=== PATIENT | female | born 1960 | race Caucasian/White ===

== ENCOUNTER 2018-08-24 22:09 | Emergency (ER) | payer OTHER ==
[2018-08-24 23:18] LABS: ADD UMIC YES; UR ASCORBIC ACID NEGATIVE (NEGATIVE); UR BILIRUBIN (Dip) NEGATIVE (NEGATIVE); UR BLOOD (Dip) 2+ mg/dL (NEGATIVE); UR CLARITY CLOUDY (CLEAR); UR COLOR YELLOW (YELLOW); UR GLUCOSE (Dip) 2+ mg/dL (NEGATIVE); UR KETONES (Dip) NEGATIVE (NEGATIVE); UR LEUKOCYTE ESTERASE (Dip) 1+ Leu/ul (NEGATIVE); UR MUCUS FEW /HPF (NONE SEEN); UR NITRITE (Dip) NEGATIVE (NEGATIVE); UR NONSQUAMOUS EPITHELIAL CELL 2 /HPF (NONE SEEN); UR RBC 28 /HPF (0-5); UR SPECIFIC GRAVITY (Dip) 1.017 (1.003-1.030); UR SQUAMOUS EPITHELIAL CELL FEW /HPF (FEW); UR TOTAL PROTEIN (Dip) 2+ mg/dl (NEGATIVE); UR UROBILINOGEN (Dip) NEGATIVE (NEGATIVE); UR WBC 69 /HPF (0-5)
[2018-08-25 00:04] LABS: ABNORMAL IP MESSAGE 1; HEMATOCRIT 36.8 % (37.0-47.0); HEMOGLOBIN 12.1 g/dl (12.0-16.0); MEAN CORPUSCULAR HEMOGLOBIN 27.4 pg (29.0-33.0); MEAN CORPUSCULAR HGB CONC 32.9 g/dl (32.0-37.0); MEAN CORPUSCULAR VOLUME 83.4 fl (82.0-101.0); MEAN PLATELET VOLUME 10.1 fl (7.4-10.4); PLATELET COUNT 177 10^3/UL (140-415); RED BLOOD COUNT 4.41 10^6/ul (4.20-5.40)
[2018-08-25 00:04] LABS: WHITE BLOOD COUNT 1.9 10^3/ul (4.8-10.8)
[2018-08-25 00:11] LABS: ADD MAN DIFF? YES; POSITIVE DIFF @See below
[2018-08-25 00:28] LABS: ALANINE AMINOTRANSFERASE 106 IU/L (13-69); ALBUMIN 3.7 g/dl (3.3-4.9); ALBUMIN/GLOBULIN RATIO 1.08; ALKALINE PHOSPHATASE 95 IU/L (42-121); ANION GAP 13 (5-13); ASPARTATE AMINO TRANSFERASE 122 IU/L (15-46); BILIRUBIN,INDIRECT 0.5 mg/dl (0-1.1); BILIRUBIN,TOTAL 0.5 mg/dl (0.2-1.3); BLOOD UREA NITROGEN 16 mg/dl (7-20); CALCIUM 8.2 mg/dl (8.4-10.2); CARBON DIOXIDE 26 mmol/L (21-31); CHLORIDE 98 mmol/L (97-110); CREATININE 0.83 mg/dl (0.44-1.00); Estimated GFR > 60 mL/min (>60); GLUCOSE 175 mg/dl (70-220); LIPASE 68 U/L (23-300); POTASSIUM 3.8 mmol/L (3.5-5.1); SODIUM 137 mmol/L (135-144); TOTAL PROTEIN 7.1 g/dl (6.1-8.1)
[2018-08-25] MEDS ORDERED: CEFTRIAXONE 1 GM/50 ML (PMX) 50 ML IVPB (02:21)
[2018-08-25] MEDS: METHYLPREDNISOLONE 125 MG INJ IV (02:49)
[2018-08-25] MEDS: metroNIDAZOLE 500 MG/NS (PMX) 100 ML IVPB (02:49)
[2018-08-25] MEDS: LEVOFLOXACIN 500MG/D5W (PMX) 100 ML IVPB (02:49)
[2018-08-25] MEDS: SOD CHLORIDE 0.9% 1,000 ML IV (02:49)
[2018-08-25] MEDS: LIDOCAINE/MYLANTA 40 ML BTL PO (02:54)
[2018-08-25] MEDS: FAMOTIDINE 20 MG INJ IV (02:54)
[2018-08-25] MEDS: ONDANSETRON 4 MG INJ IV (02:54)
[2018-08-25] MEDS: BELLADONNA/PHENOBARBITAL TAB PO (02:55)
[2018-08-25] MEDS: DIPHENHYDRAMINE 50 MG INJ IV (02:55)
== END 2018-08-25 05:20 | disposition home or self-care (01) ==
LOC: E/R 08-25 05:20
DX: N30.01 Acute cystitis with hematuria (principal); I10 Essential (primary) hypertension; E11.9 Type 2 diabetes mellitus without complications; D72.819 Decreased white blood cell count, unspecified; R21 Rash and other nonspecific skin eruption; R74.0 Nonspecific elevation of levels of transaminase and lactic acid dehydrogenase [LDH]; Z79.4 Long term (current) use of insulin
CPT/HCPCS: 80053; 81001; 83690; 85025; 96374; 96375; 96376; 99284-25

== ENCOUNTER 2018-10-21 19:51 | Inpatient (IN) | payer OTHER ==
[2018-10-21] MEDS: CEFEPIME 2GM/50 ML (PMX) 50 ML IVPB ×2 (20:41→21:01)
[2018-10-21] MEDS: SODIUM CHLORIDE 0.9% 1L BAG IV* (20:42)
[2018-10-21] MEDS: ACETAMINOPHEN 325 MG TAB PO (20:42)
[2018-10-21 20:55] LABS: WHITE BLOOD COUNT 3.2 10^3/ul (4.8-10.8)
[2018-10-21 20:55] LABS: HEMATOCRIT 31.6 % (37.0-47.0); HEMOGLOBIN 10.7 g/dl (12.0-16.0); MEAN CORPUSCULAR HEMOGLOBIN 28.5 pg (29.0-33.0); MEAN CORPUSCULAR HGB CONC 33.9 g/dl (32.0-37.0); MEAN PLATELET VOLUME 12.2 fl (7.4-10.4); PLATELET COUNT 125 10^3/UL (140-415); RED BLOOD COUNT 3.76 10^6/ul (4.20-5.40); RED CELL DISTRIBUTION WIDTH 15.1 % (11.5-14.5)
[2018-10-21 20:56] LABS: ADD MAN DIFF? YES; POSITIVE DIFF @See below
[2018-10-21 21:12] LABS: INR 1.12; PROTIME 14.5 Sec (11.9-14.9); PT RATIO 1.1
[2018-10-21 21:16] LABS: ALANINE AMINOTRANSFERASE 55 IU/L (13-69); ALBUMIN 3.6 g/dl (3.3-4.9); ALBUMIN/GLOBULIN RATIO 1.05; ALKALINE PHOSPHATASE 95 IU/L (42-121); ANION GAP 11 (5-13); ASPARTATE AMINO TRANSFERASE 109 IU/L (15-46); BILIRUBIN,INDIRECT 0.4 mg/dl (0-1.1); BILIRUBIN,TOTAL 0.4 mg/dl (0.2-1.3); BLOOD UREA NITROGEN 25 mg/dl (7-20); CALCIUM 8.9 mg/dl (8.4-10.2); CARBON DIOXIDE 24 mmol/L (21-31); CHLORIDE 102 mmol/L (97-110); CREATININE 0.93 mg/dl (0.44-1.00); Estimated GFR > 60 mL/min (>60); GLUCOSE 248 mg/dl (70-220); LIPASE 31 U/L (23-300); POTASSIUM 3.3 mmol/L (3.5-5.1); SODIUM 137 mmol/L (135-144)
[2018-10-21] MEDS: VANCOMYCIN 1 GM (PMX) 250 ML IVPB (21:22)
[2018-10-21 21:28] LABS: TROPONIN-I < 0.012 ng/ml (0.000-0.120)
[2018-10-21 22:43] LABS: ANISOCYTOSIS 2+ (0-0); BAND NEUTROPHILS % (M) 2 % (0-4); BURR CELLS 1+ (0-0); EOSINOPHILS % (M) 3 % (0-7); GIANT THROMBO% (M) 1 % (0-0); LYMPHOCYTES #M 0.8 10^3/ul (0.8-2.9); LYMPHOCYTES % (M) 25 % (15-51); MICROCYTOSIS 1+ (0-0); MONOCYTE #M 0.3 10^3/ul (0.3-0.9); MONOCYTES % (M) 11 % (0-11); MYELOCYTES % (M) 1 % (0-0); OVALOCYTES 2+ (0-0); PLATELET ESTIMATE NORMAL; POIKILOCYTOSIS 2+ (0-0); POLYCHROMASIA 1+ (0-0); REACTIVE LYMPHOCYTES% (M) 1 % (0-0); SEG NEUT #M 1.8 10^3/ul (1.6-7.5); SEGMENTED NEUTROPHILS (M) % 57 % (39-77); SMUDGE%M 21 % (0-0)
[2018-10-21 22:47] LABS: ADD UMIC NO; UR ASCORBIC ACID NEGATIVE (NEGATIVE); UR BILIRUBIN (Dip) NEGATIVE (NEGATIVE); UR BLOOD (Dip) NEGATIVE (NEGATIVE); UR CLARITY CLEAR (CLEAR); UR COLOR YELLOW (YELLOW); UR GLUCOSE (Dip) 1+ mg/dL (NEGATIVE); UR KETONES (Dip) NEGATIVE (NEGATIVE); UR LEUKOCYTE ESTERASE (Dip) NEGATIVE Leu/ul (NEGATIVE); UR NITRITE (Dip) NEGATIVE (NEGATIVE); UR SPECIFIC GRAVITY (Dip) 1.012 (1.003-1.030); UR TOTAL PROTEIN (Dip) NEGATIVE (NEGATIVE); UR UROBILINOGEN (Dip) NEGATIVE (NEGATIVE)
[2018-10-22] MEDS ORDERED: ACETAMINOPHEN 325 MG TAB PO (01:00)
[2018-10-22] MEDS ORDERED: ONDANSETRON 4 MG INJ IV (01:00)
[2018-10-22 01:04] LABS: LACTIC ACID 0.7 mmol/L (0.5-2.0)
[2018-10-22] MEDS ORDERED: ALBUTEROL/IPRATROPIUM (NEB) 3 ML AMP HHN (05:00)
[2018-10-22] MEDS ORDERED: NACL 0.9% 3 ML SYG IV (05:00)
[2018-10-22] MEDS ORDERED: DEXTROSE 50% 50 ML SYRINGE IV ×2 (05:30)
[2018-10-22] MEDS ORDERED: GLUCOSE GEL 15 GRAM TUBE PO ×2 (05:30)
[2018-10-22] MEDS ORDERED: GLUCOSE GEL 15 GRAM TUBE BUCCAL (05:30)
[2018-10-22] MEDS ORDERED: GLUCAGON 1 MG INJ IM (05:30)
[2018-10-22 06:23] LABS: ABNORMAL IP MESSAGE 1; HEMATOCRIT 29.6 % (37.0-47.0); HEMOGLOBIN 9.8 g/dl (12.0-16.0); MEAN CORPUSCULAR HEMOGLOBIN 27.8 pg (29.0-33.0); MEAN CORPUSCULAR HGB CONC 33.1 g/dl (32.0-37.0); MEAN CORPUSCULAR VOLUME 84.1 fl (82.0-101.0); MEAN PLATELET VOLUME 12.2 fl (7.4-10.4); PLATELET COUNT 118 10^3/UL (140-415); RED BLOOD COUNT 3.52 10^6/ul (4.20-5.40); RED CELL DISTRIBUTION WIDTH 15.2 % (11.5-14.5)
[2018-10-22 06:23] LABS: WHITE BLOOD COUNT 1.9 10^3/ul (4.8-10.8)
[2018-10-22 06:29] LABS: ADD MAN DIFF? YES; POSITIVE DIFF @See below
[2018-10-22 06:59] LABS: ALANINE AMINOTRANSFERASE 52 IU/L (13-69); ALBUMIN 3.2 g/dl (3.3-4.9); ALBUMIN/GLOBULIN RATIO 1.03; ALKALINE PHOSPHATASE 73 IU/L (42-121); ANION GAP 9 (5-13); ASPARTATE AMINO TRANSFERASE 91 IU/L (15-46); BILIRUBIN,INDIRECT 0.3 mg/dl (0-1.1); BILIRUBIN,TOTAL 0.3 mg/dl (0.2-1.3); BLOOD UREA NITROGEN 20 mg/dl (7-20); CARBON DIOXIDE 24 mmol/L (21-31); CHLORIDE 106 mmol/L (97-110); CREATININE 0.83 mg/dl (0.44-1.00); Estimated GFR > 60 mL/min (>60); GLUCOSE 121 mg/dl (70-220); MAGNESIUM 1.8 mg/dl (1.7-2.5); PHOSPHORUS 4.5 mg/dl (2.5-4.9); POTASSIUM 3.1 mmol/L (3.5-5.1); SODIUM 139 mmol/L (135-144); TOTAL PROTEIN 6.3 g/dl (6.1-8.1)
[2018-10-22] MEDS: INSULIN ASPART [NOVOLOG] 3 ML PEN SC ×4 (08:00→20:38)
[2018-10-22] MEDS: TRIMETHOPRIM/SULFAMETHOX (DS) TAB PO (08:32)
[2018-10-22] MEDS: RALTEGRAVIR 400 MG TAB PO ×2 (08:32→21:35)
[2018-10-22] MEDS: EMTRICITABINE/TENOFOVIR TAB PO (08:32)
[2018-10-22] MEDS: FAMOTIDINE 20 MG TAB PO ×2 (08:35→20:38)
[2018-10-22] MEDS: INSULIN GLARGINE [LANTus] (100 UNITS/ML) SYG SC (08:35)
[2018-10-22] MEDS: BENAZEPRIL 10 MG TAB PO (08:35)
[2018-10-22] MEDS: SOD CHLORIDE 0.9% 1,000 ML IV ×3 (08:36→20:38)
[2018-10-22] MEDS: POTASSIUM CHLORIDE (SR) 20 MEQ TAB PO (10:58)
[2018-10-22] MEDS: ONDANSETRON 4 MG INJ IV (11:06)
[2018-10-22] MEDS: POTASSIUM CHLORIDE 100 ML IVPB ×2 (11:51→14:03)
[2018-10-22] MEDS: DIPHENHYDRAMINE 25 MG CAP PO (18:50)
[2018-10-22] MEDS: ATORVASTATIN 20 MG TAB PO (20:38)
[2018-10-22] MEDS: TRIAMCINOLONE ACET 0.025% 15 GM OINT TOP (21:35)
[2018-10-22] MEDS: CEFEPIME 2GM/50 ML (PMX) 50 ML IVPB (21:35)
[2018-10-23] MEDS: ACCU-CHEK XX (01:24)
[2018-10-23 05:48] LABS: WHITE BLOOD COUNT 2.2 10^3/ul (4.8-10.8)
[2018-10-23 05:48] LABS: ABNORMAL IP MESSAGE 1; HEMATOCRIT 26.9 % (37.0-47.0); HEMOGLOBIN 8.9 g/dl (12.0-16.0); MEAN CORPUSCULAR HEMOGLOBIN 28.4 pg (29.0-33.0); MEAN CORPUSCULAR HGB CONC 33.1 g/dl (32.0-37.0); MEAN CORPUSCULAR VOLUME 85.9 fl (82.0-101.0); MEAN PLATELET VOLUME 11.3 fl (7.4-10.4); PLATELET COUNT 102 10^3/UL (140-415); RED BLOOD COUNT 3.13 10^6/ul (4.20-5.40); RED CELL DISTRIBUTION WIDTH 15.5 % (11.5-14.5)
[2018-10-23 05:58] LABS: ADD MAN DIFF? YES; POSITIVE DIFF @See below
[2018-10-23 06:09] LABS: IRON 69 ug/dl (35-150)
[2018-10-23 06:18] LABS: % IRON SATURATION 32 % SAT (22-52); TOTAL IRON BINDING CAPACITY 214 ug/dl (241-421)
[2018-10-23 06:19] LABS: ANION GAP 10 (5-13); BLOOD UREA NITROGEN 14 mg/dl (7-20); CALCIUM 7.4 mg/dl (8.4-10.2); CARBON DIOXIDE 21 mmol/L (21-31); CHLORIDE 108 mmol/L (97-110); CREATININE 0.82 mg/dl (0.44-1.00); Estimated GFR > 60 mL/min (>60); GLUCOSE 70 mg/dl (70-220); MAGNESIUM 1.7 mg/dl (1.7-2.5); PHOSPHORUS 3.1 mg/dl (2.5-4.9); POTASSIUM 3.4 mmol/L (3.5-5.1); SODIUM 139 mmol/L (135-144)
[2018-10-23] MEDS: SOD CHLORIDE 0.9% 1,000 ML IV ×2 (06:36→16:19)
[2018-10-23 06:54] LABS: HIV 1&2 ANTIBODY REACTIVE (NEGATIVE)
[2018-10-23 07:58] LABS: ANISOCYTOSIS 1+ (0-0); BAND NEUTROPHILS % (M) 2 % (0-4); BASOPHILS % (M) 1 % (0-2); BURR CELLS 1+ (0-0); EOSINOPHILS % (M) 15 % (0-7); GIANT THROMBO% (M) 6 % (0-0); LYMPHOCYTES #M 0.8 10^3/ul (0.8-2.9); LYMPHOCYTES % (M) 38 % (15-51); MICROCYTOSIS 1+ (0-0); MONOCYTE #M 0.1 10^3/ul (0.3-0.9); MONOCYTES % (M) 5 % (0-11); OVALOCYTES 1+ (0-0); PLATELET ESTIMATE DECREASED; POIKILOCYTOSIS 2+ (0-0); REACTIVE LYMPHOCYTES #M 0.2 10^3/ul (0.0-0.0); REACTIVE LYMPHOCYTES% (M) 12 % (0-0); SEG NEUT #M 0.6 10^3/ul (1.6-7.5); SEGMENTED NEUTROPHILS (M) % 27 % (39-77); SMUDGE%M 42 % (0-0)
[2018-10-23] MEDS: INSULIN ASPART [NOVOLOG] 3 ML PEN SC ×4 (08:00→21:00)
[2018-10-23] MEDS: FAMOTIDINE 20 MG TAB PO ×2 (08:11→21:17)
[2018-10-23] MEDS: TRIMETHOPRIM/SULFAMETHOX (DS) TAB PO (08:11)
[2018-10-23] MEDS: EMTRICITABINE/TENOFOVIR TAB PO (08:11)
[2018-10-23] MEDS: CEFEPIME 2GM/50 ML (PMX) 50 ML IVPB ×2 (08:13→21:17)
[2018-10-23] MEDS: TRIAMCINOLONE ACET 0.025% 15 GM OINT TOP ×2 (08:13→21:17)
[2018-10-23] MEDS: RALTEGRAVIR 400 MG TAB PO ×2 (08:14→21:17)
[2018-10-23] MEDS: INSULIN GLARGINE [LANTus] (100 UNITS/ML) SYG SC (08:15)
[2018-10-23] MEDS: BENAZEPRIL 10 MG TAB PO (08:15)
[2018-10-23] MEDS: ACETAMINOPHEN 325 MG TAB PO (17:01)
[2018-10-23 17:21] LABS: LYMPHOCYTE - % CD4 (HELPER) 13 % (30-61); LYMPHOCYTE - %CD8 (SUPPRESSOR) 74 % (12-42); LYMPHOCYTE - ABSOLUTE 762 cells/uL (850-3900); LYMPHOCYTE - ABSOLUTE CD4 96 cells/uL (490-1740); LYMPHOCYTE - ABSOLUTE CD8 561 cells/uL (180-1170); LYMPHOCYTE - CD4/CD8 RATIO 0.17 (0.86-5.00)
[2018-10-23] MEDS: ATORVASTATIN 20 MG TAB PO (21:17)
[2018-10-24] MEDS: ACCU-CHEK XX (01:34)
[2018-10-24] MEDS: SOD CHLORIDE 0.9% 1,000 ML IV ×2 (03:00→05:37)
[2018-10-24] MEDS: INSULIN ASPART [NOVOLOG] 3 ML PEN SC (07:50)
[2018-10-24] MEDS: TRIAMCINOLONE ACET 0.025% 15 GM OINT TOP (08:40)
[2018-10-24] MEDS: RALTEGRAVIR 400 MG TAB PO (08:40)
[2018-10-24] MEDS: TRIMETHOPRIM/SULFAMETHOX (DS) TAB PO (08:44)
[2018-10-24] MEDS: BENAZEPRIL 10 MG TAB PO (08:44)
[2018-10-24] MEDS: FAMOTIDINE 20 MG TAB PO (08:44)
[2018-10-24] MEDS: EMTRICITABINE/TENOFOVIR TAB PO (08:45)
[2018-10-24] MEDS: INSULIN GLARGINE [LANTus] (100 UNITS/ML) SYG SC (08:47)
[2018-10-24] MEDS: ONDANSETRON 4 MG INJ IV (10:53)
== END 2018-10-24 11:20 | disposition home or self-care (01) | DRG 975 ==
LOC: E/R 19:51 → PP2 10-22 00:33
PROVIDERS: Internal Medicine
DX: B20 Human immunodeficiency virus [HIV] disease (principal); A41.9 Sepsis, unspecified organism; D61.818 Other pancytopenia; E11.8 Type 2 diabetes mellitus with unspecified complications; I10 Essential (primary) hypertension; E78.5 Hyperlipidemia, unspecified; K21.9 Gastro-esophageal reflux disease without esophagitis; K29.70 Gastritis, unspecified, without bleeding; K76.0 Fatty (change of) liver, not elsewhere classified; E86.0 Dehydration; L29.9 Pruritus, unspecified; K52.9 Noninfective gastroenteritis and colitis, unspecified
CPT/HCPCS: 36415; 71045; 74176; 80048; 80053; 81003; 82962; 83540; 83605; 83690; 83735; 84100; 84484; 85025; 85610; 85730; 86360; 86701; 86703; 87040; 87081; 87086; 87400; 87536; 93005; 96365; 96375; 99291-25